=== PATIENT | female | born 1990 | race Caucasian/White ===

== ENCOUNTER 2025-05-03 10:17 | Emergency (ER) | payer BC, SELFPAY ==
[2025-05-03 10:21] VITALS: BP 151/98; PULSE 90; RESP 18; TEMP 36.3; O2SAT 99; BMI 32.6
--- NOTE | 2025-05-03 10:21 | ED_ITS ---
HPI - General Adult General Chief complaint: Animal Bite Stated complaint: Cat bite Time Seen by Provider: 05/03/25 10:24 Source: patient Mode of arrival: ambulatory Limitations: no limitations History of Present Illness ED Provider: Stephanie Acosta PA-C HPI narrative: Patient is a 34 year old assigned female at with no reported medical history presenting to the emergency department today with right index finger cat bite. Patient states that she was handling a stray cat to send a picture to the local animal senior care when she was bit on her right index finger approximately 30 minutes prior to arrival in the department. Patient states that she does not know the cats vaccination status but she is up to date on tetanus. Patient denies any other complaints at this time. Onset (ago): minute(s) Relieving factors: none Exacerbating factors: none Associated symptoms: denies other symptoms Treatments prior to arrival: none Related Data Previous Rx's ?Medication ?Instructions ?Recorded amoxicillin 875 mg-potassium 1 tab PO BID 5 days #10 t abs 05/03/25 clavulanate 125 mg tablet Allergies Allergy/AdvReac Type Severity Reaction Status Date / Time No Known Allergies Allergy Verified 05/03/25 10:25 Review of Systems 2 Constitutional: Constitutional: Reports as per HPI Eyes: Eyes: Reports as per HPI ENT: Reports as per HPI Cardiovascular: Cardiovascular: Reports as per HPI Respiratory: Respiratory: Reports as per HPI Gastrointestinal: Gastrointestinal: Reports as per HPI Genitourinary: Genitourinary: Reports as per HPI Musculoskeletal: Comments: right index finger pain / cat bite Psychiatric: Psychiatric: Reports as per HPI Endocrine: Endocrine: Reports as per HPI Hematologic/Lymphatic: Hematologic/Lymphatic: Reports as per HPI Allergic/Immunologic: Allergic/Immunologic: Reports as per HPI PMF Past Medical History Attestation statement: The following information was validated with the patient. Source: old records reviewed and nursing notes reviewed Medical History Rabies exposure Social History Social History Advance Directives: No Advance Directives Information Provided: Yes Do you have a plan to hurt others: No Plan Physical Exam ED Vital Signs: Vital Signs - 24 hr 05/03/25 10:21 Temperature 97.3 F Pulse Rate 90 Respiratory Rate 18 Blood Pressure 151/98 H Pulse Oximetry 99 Oxygen Delivery Method Room Air BMI result Body Mass Index 32.6 Const General: cooperative, no acute distress, alert and awake Nutritional Appearance: well nourished Orientation/consciousness: patient oriented x3 HENMT Head: Yes normal to inspection and Yes atraumatic Ears: hearing grossly normal bilaterally and external ears normal General nose exam: Normal external nose present, no nasal discharge noted and no epistaxis Face and sinus: Yes normal facial exam, No abrasion and No laceration Mouth: Normal oral and palatal mucosa present, no drooling and no muffled voice Eyes General: appearance normal, both eyes and all related structures Periorbital: periorbital findings normal Eyelids: Yes eyelids normal Conjunctivae: conjunctivae normal Pupils: Equal, round and reactive pupils present EOM: EOMs intact bilaterally Neck Neck: Yes normal visual inspection and Yes full ROM Resp Effort & Inspection: normal respiratory effort and able to speak in complete sentences Neuro General: patient oriented x3, moves all extremities and CN's II-XI intact bilaterally Cranial nerves: Yes Equal, round and reactive pupils present Cognition (Neuro): normal cognition Extrem Other: General: Yes full ROM and Yes capillary refill normal Psych Appearance: grossly normal Mental Status: mental status grossly normal Affect: normal affect Attitude: cooperative Thought process: Normal thought process present Thought content: Normal thought content present Insight: Good insight present (Psych) Medical Decision Making Medical Decision Making MDM Narrative: Patient is a 34 year old assigned female at with no reported medical history presenting to the emergency department today with right index finger cat bite. Patient's physical exam was as noted in the physical exam portion of this note. Patient has full ROM of the right index finger, no evidence of cellulitis. I explained my physical exam findings to the patient. I answered all questions asked by the patient. Patient's right index finger was soaked in an iodine and saline mixture for at least 15 minutes. Patient was given rabies prophylaxis and prescribed prophylactic augmentin. I stressed the importance of the patient taking her medication as directed (either prescribed or as the over the counter packaging recommends). I stressed the importance of the patient following up with her primary care provider and returning to the [facility]fusion center to complete her rabies series. I stressed the importance of the patient returning to the emergency department immediately if her symptoms were to worsen or if she were to develop any dizziness, shortness of breath, difficulty breathing, chest pain, blurry vision, loss of vision, nausea, vomiting, abdominal pain, fever, chills, back pain, or any other complaints. Patient verbalized agreement and understanding with this treatment plan and discharge. Differential Diagnosis Differential Diagnoses: The differential diagnosis associated with the presentation includes Right index finger cat bite Rabies exposure Admission/Observation Consideration of admission/observation: Escalation of care including admission/observation considered Patient would have been admitted to the hospital had her clinical presentation warranted hospital admission. Prescription Management I considered prescription management with: Antibiotic (patient prescribed a prophylactic antibiotic) Discharge Plan Discharge Clinical Impression: Rabies exposure, Cat bite Patient Disposition: Home, Self-Care Instructions: Animal Bite (ED), Rabies (ED) Additional Instructions: You should get a call from the Infusion Center to schedule an appointment to receive the remainder of your required Rabies Vaccines. You will need a total of 3 more injections. If for some reason you do not receive a call from the infusion center - please call them at [phone]. Follow up with your primary care provider after completion of the vaccine to have a titer drawn to ensure the vaccines effectiveness. IF you are prescribed home medications and/or you are taking over the counter medications at home - it is very important you continue to do so as prescribed / directed unless told otherwise. Follow up with your primary care provider. Return to the emergency department immediately if your symptoms worsen or if you develop any numbness, tingling, dizziness, shortness of breath, difficulty breathing, chest pain, blurry vision, loss of vision, nausea, vomiting, abdominal pain, fever, chills, back pain, or any other complaints. L If you do not have a primary care provider - call any of the below numbers to establish and follow up with a primary care provider. [facility] Primary Care ([place]) [phone] [place] [address], [address] [facility] Primary Care ([address] [place]) [phone] [address] [facility], [address] [facility], [address] [facility] Primary Care ([address] [place]) [phone] [address] [facility], [address] [facility], [address] [facility] Primary Care ([place]) [phone] [place] [address], [address] [facility], [address] [facility] Family Medicine [phone] [place] [address], [address] Please see the information below about our Patient Portal. If you are not yet enrolled in the [facility] Patient Portal, you will receive an enrollment email invitation following your visit to any [facility] setting. You may also self-enroll in the Patient Portal by visiting our website: [email or web address] The following information is required to access the Patient Portal: - Your [facility] Medical Record Number - Your personal home email address (must match what is in your electronic medical record, Registration staff can assist with this) - Name - Date of Capabilities of the Patient Portal: - Message some providers - View upcoming appointments - Access your health summary, medical history, and visit history - View current conditions and allergies - View procedure and lab results - View your medications, including guidelines, side effects, and precautions - Complete pre-appointment questionnaires requested by your provider - Ready summary reports of your office visits and procedures To access the Patient Portal Mobile [employer], follow these directions: - Search Image[employer] in the [employer] Store or [employer] Store - Download the [employer] - Search for [facility] - Enter your login/password Prescriptions: New amoxicillin-pot clavulanate 875-125 mg tablet 1 tab PO BID 5 Days Qty: 10 0RF Print Language: Iranian
[2025-05-03] MEDS: Rabies Immune Globulin/PF 900 UNIT/3 ML VIAL 1830 UNIT IM (10:49)
[2025-05-03] MEDS: Rabies Vaccine (PCEC)/PF 1 ML VIAL IM (10:49)
--- NOTE | 2025-05-03 11:22 | PC.NURSE ---
medications administered per provider order. rabies vaccination's paperwork filled out w/ pt prior to d/c. paperwork faxed to [facility]. pt notified/aware of plan in regards to receiving phone call fro infusion center/following up w/ upcoming appts.
== END 2025-05-03 11:22 | disposition home or self-care (01) ==
PROVIDERS: Emergency Provider Emergency Medicine
DX: S61.250A Open bite of right index finger without damage to nail, initial encounter (principal); W55.01XA Bitten by cat, initial encounter; Y93.89 Activity, other specified; Y92.410 Unspecified street and highway as the place of occurrence of the external cause; Y99.9 Unspecified external cause status; Z20.3 Contact with and (suspected) exposure to rabies; Z23 Encounter for immunization
CPT/HCPCS: 90375; 90471; 90675; 96372; 99281; 99284

== ENCOUNTER 2025-05-17 10:00 | Outpatient (RCR) | payer BC, SELFPAY ==
[2025-05-06 10:05] VITALS: BP 117/70; PULSE 77; RESP 18; TEMP 36.9; O2SAT 98
[2025-05-06] MEDS: Rabies Vaccine (PCEC)/PF 1 ML VIAL IM (10:07)
[2025-05-10 07:57] VITALS: BP 126/79; PULSE 68; RESP 18; TEMP 35.9
[2025-05-10] MEDS: Rabies Vaccine (PCEC)/PF 1 ML VIAL IM (08:02)
[2025-05-17 10:04] VITALS: BP 111/61; PULSE 63; RESP 16; TEMP 524.4; TEMP 976; O2SAT 98
[2025-05-17] MEDS: Rabies Vaccine (PCEC)/PF 1 ML VIAL IM (10:13)
== END 2025-05-17 10:16 | disposition home or self-care (01) ==
LOC: HO.INF 10:00
PROVIDERS: Visit Provider Physician Assistant Medical
DX: Z20.3 Contact with and (suspected) exposure to rabies (principal)
CPT/HCPCS: 90471; 90675; 96374